=== PATIENT | female | born 1990 | race Caucasian/White ===

== ENCOUNTER 2017-01-23 20:20 | Emergency (ER) | payer MEDICARE, MEDICAID ==
[2017-01-23 20:52] VITALS: BP 147/78
[2017-01-23] MEDS ORDERED: Ibuprofen 800 MG Tab PO ONE (21:22)
--- NOTE | 2017-01-23 21:56 | EDM.PDOC ---
ED HPI ENT - General Chief Complaint: ENT Problem Stated Complaint: ILLNESS Time Seen by Provider: 01/23/17 21:20 Source: Reports: Patient History Limitations: Reports: No limitations (hoarse voice noted.) - History of Present Illness INITIAL COMMENTS - FREE TEXT/NARRATIVE: Pt reports 2 day hx of significant sore throat and now loss of voice. Has been using dayquil, nyquil and muccinex with some symptom relief. Has not taken anything recently for fever. Cough is productive and notes blood tinged sputum of 1 episode. 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) - Related Data Allergies/ADRs: Allergies Allergy/AdvReac Type Severity Reaction Status Date / Time No Known Allergies Allergy Verified 01/23/17 21:16 Home Meds: Home Meds Acyclovir [Acyclovir] 200 mg PO DAILY PRN 10/19/16 [History] Past Medical History - Past Health History Medical/Surgical History: Denies Medical/Surgical History Other HEENT History: excessive wax Genitourinary History: Reports: Other (see below) Other Genitourinary History: herpes - Infectious Disease History Infectious Disease History: Reports: Chicken pox, Herpes Social & Family History - Tobacco Use Smoking Status *Q: Current Status Unknown Second Hand Smoke Exposure: No - Caffeine Use Caffeine Use: Reports: Soda - Alcohol Use Days Per Week of Alcohol Use: 0 - Recreational Drug Use Recreational Drug Use: No Drug Use in Last 12 Months: No ED ROS ENT - Review of Systems Review Of Systems: ROS reveals no pertinent complaints other than HPI. ED EXAM, ENT - Physical Exam Exam: See Below Exam Limited By: No limitations General Appearance: alert, no apparent distress Eye Exam: bilateral eye: normal inspection, PERRL Ears: normal external exam, normal canal, hearing grossly normal, normal TMs Nose: normal inspection, normal mucousa Mouth/Throat: Tonsillar erythema, Tonsillar exudates, Tonsillar swelling. No: Peritonsillar mass (voice hoarsness) Head: atraumatic, normocephalic Neck: supple, lymphadenopathy (R), lymphadenopathy (L) Respiratory/Chest: no respiratory distress, lungs clear, normal breath sounds. No: rales, rhonchi, wheezing Cardiovascular: regular rate, rhythm Neurological: alert, oriented, normal cognition, normal gait, no motor/sensory deficits Psychiatric: normal affect, normal mood Skin: Warm, Dry Course - Vital Signs Last Recorded V/S: Last Vital Signs Temp 36.9 C 01/23/17 21:17 Pulse 73 01/23/17 21:17 Resp 16 01/23/17 21:17 BP 147/78 H 01/23/17 21:17 Pulse Ox 95 01/23/17 21:17 - Orders/Labs/Meds Orders: Active Orders 24 hr Category Date Time Status CULTURE STREP A CONFIRMATION [RM] Stat Lab 01/23/17 21:16 Results STREP SCRN A RAPID W CULT CONF [RM] Stat Lab 01/23/17 21:16 Results Labs: Rapid strep test negative. Culture pending. Discussed with patient. Meds: Medications Discontinued Medications Generic Name Dose Route Start Last Admin Trade Name Billq PRN Reason Stop Dose Admin Ibuprofen 800 mg 01/23/17 21:22 01/23/17 21:30 Motrin PO 01/23/17 21:23 800 mg ONETIME ONE Administration Departure - Departure Time of Disposition: 21:56 Disposition: Home, Self-Care 01 Condition: fair Clinical Impression: Tonsillitis, Tonsillitis with exudate, Laryngitis, Viral URI Instructions: Tonsillitis, [id number], Laryngitis Referrals: Jonathan Mares PA-C [Primary Care Provider] - Forms: ED Department Discharge - Problem List & Annotations (1) Tonsillitis with exudate SNOMED Code(s): 67979897 Code(s): J03.90 - ACUTE TONSILLITIS, UNSPECIFIED Status: Acute Current Visit: Yes (2) Laryngitis SNOMED Code(s): 24195951 Code(s): J04.0 - ACUTE LARYNGITIS Status: Acute Current Visit: Yes - Problem List Review Problem List Initiated/Reviewed/Updated: Yes - My Orders Last 24 Hours: My Active Orders 01/23/17 21:16 CULTURE STREP A CONFIRMATION [RM] Stat STREP SCRN A RAPID W CULT CONF [RM] Stat - Assessment/Plan Last 24 Hours: My Active Orders 01/23/17 21:16 CULTURE STREP A CONFIRMATION [RM] Stat STREP SCRN A RAPID W CULT CONF [RM] Stat
== END 2017-01-23 22:05 | disposition home or self-care (01) ==
LOC: JP.ED 20:20
DX: J03.90 Acute tonsillitis, unspecified (principal); J04.0 Acute laryngitis; J06.9 Acute upper respiratory infection, unspecified
CPT/HCPCS: 87081; 87430; 99283; A9270

== ENCOUNTER 2017-02-04 11:45 | Emergency (ER) | payer MEDICAID, MEDICARE, OTHER ==
[2017-02-04 12:24] VITALS: BP 127/67
--- NOTE | 2017-02-04 12:41 | EDM.PDOC ---
ED HPI GENERAL MEDICAL PROBLEM - General Chief Complaint: Upper Extremity Injury/Pain Stated Complaint: WORK COMP: UPPER LT ARM INJURY Time Seen by Provider: 02/04/17 12:33 Source of Information: Reports: Patient History Limitations: Reports: No Limitations - History of Present Illness INITIAL COMMENTS - FREE TEXT/NARRATIVE: This patient is a slipped in the freezer at the [employer]. She bumped her left upper arm against a shelf. She's here she just wants to get it checked out. She said it hurts when she extends her arm to the side. There were no other injuries - Related Data Allergies Allergy/AdvReac Type Severity Reaction Status Date / Time No Known Allergies Allergy Verified 02/04/17 12:15 Home Meds: Home Meds Acyclovir [Acyclovir] 200 mg PO DAILY PRN 10/19/16 [History] Past Medical History - Past Health History Medical/Surgical History: Denies Medical/Surgical History Other HEENT History: excessive wax Genitourinary History: Reports: Other (See Below) Other Genitourinary History: herpes - Infectious Disease History Infectious Disease History: Reports: Chicken Pox, Herpes Social & Family History - Tobacco Use Smoking Status *Q: Never Smoker Second Hand Smoke Exposure: No - Caffeine Use Caffeine Use: Reports: Soda - Alcohol Use Days Per Week of Alcohol Use: 0 - Recreational Drug Use Recreational Drug Use: No Drug Use in Last 12 Months: No Review of Systems - Review of Systems Review Of Systems: ROS reveals no pertinent complaints other than HPI. Trauma Exam - Physical Exam Exam: See Below Exam Limited By: No Limitations General Appearance: Reports: Alert, No Apparent Distress, Obese Head: Reports: Atraumatic Eyes: Bilateral Eye: Normal Inspection Neck: Reports: Full Range of Motion Extremities: Other (There is minimal tenderness to the upper arm to the lower margin of the left deltoid. She has full range of motion of the arm and shoulder. There's no bruising or swelling.) Course - Vital Signs Last Recorded V/S: Last Vital Signs Temp 36.7 C 02/04/17 12:21 Pulse 83 02/04/17 12:21 Resp 14 02/04/17 12:21 BP 127/67 02/04/17 12:21 Pulse Ox 98 02/04/17 12:21 Departure - Departure Time of Disposition: 12:40 Disposition: Home, Self-Care 01 Condition: good Clinical Impression: Contusion of right arm - Discharge Information Forms: ED Department Discharge Additional Instructions: It may help to apply some ice to the area but that is optional. For pain just use some Tylenol. You should be back to normal in a day or 2. You may return to work
== END 2017-02-04 12:56 | disposition home or self-care (01) ==
LOC: JP.ED 11:45
DX: S40.021A Contusion of right upper arm, initial encounter (principal); Z79.899 Other long term (current) drug therapy; W22.8XXA Striking against or struck by other objects, initial encounter
CPT/HCPCS: 99282; 99283

== ENCOUNTER 2017-05-27 13:51 | Emergency (ER) | payer MEDICARE, MEDICAID ==
[2017-05-27 15:48] VITALS: BP 161/87
--- NOTE | 2017-05-27 16:40 | EDM.PDOC ---
ED HPI GENERAL MEDICAL PROBLEM - General Chief Complaint: Respiratory Problem Stated Complaint: COUGH Time Seen by Provider: 05/27/17 16:39 Source of Information: Reports: Patient History Limitations: Reports: No Limitations - History of Present Illness INITIAL COMMENTS - FREE TEXT/NARRATIVE: Entire family has been passing around the same illness. C/o cough x 1 week. Seen by PCP and dx w/ common cold Rx OTC. Now c/o severe paroxysms of coughing ending in post-tussive emisis and inability to catch breath. Denies ST or fever. Onset: Gradual Duration: Day(s): (7), Intermittent, Recurring Location: Reports: Face (noted purulent R nasal discharge x 1 day) Improves with: Reports: None Worsens with: Reports: Breathing Associated Symptoms: Reports: Cough, Headaches, Malaise. Denies: Fever/Chills, Nausea/Vomiting - Related Data Allergies Allergy/AdvReac Type Severity Reaction Status Date / Time No Known Allergies Allergy Verified 02/04/17 12:15 Home Meds: Home Meds Acyclovir [Acyclovir] 200 mg PO DAILY PRN 10/19/16 [History] Past Medical History - Past Health History Medical/Surgical History: Denies Medical/Surgical History Other HEENT History: excessive wax Genitourinary History: Reports: Other (See Below) Other Genitourinary History: herpes - Infectious Disease History Infectious Disease History: Reports: Chicken Pox, Herpes Social & Family History - Tobacco Use Smoking Status *Q: Never Smoker Second Hand Smoke Exposure: No - Caffeine Use Caffeine Use: Reports: Soda - Alcohol Use Days Per Week of Alcohol Use: 0 - Recreational Drug Use Recreational Drug Use: No Drug Use in Last 12 Months: No ED ROS GENERAL - Review of Systems Review Of Systems: See Below Constitutional: Reports: Fatigue. Denies: Night Sweats, Diaphoresis, Decreased Appetite HEENT: Reports: Rhinitis. Denies: Dental Pain, Ear Discharge, Ear Pain, Eye Discharge, Eye Pain, Nosebleed, Nose Pain, Sinus Problem, Throat Pain, Throat Swelling Respiratory: Reports: Cough, Sputum (scant). Denies: Shortness of Breath, Other Cardiovascular: Reports: No Symptoms GI/Abdominal: Reports: No Symptoms Skin: Reports: No Symptoms ED EXAM, GENERAL - Physical Exam Exam: See Below Free Text/Narrative:: Lungs CTA bilat, oropharynx showed post-nasal drip, TM retracted on L, nl on R. Slight TTP over frontal/ethmoid sinuses, but not maxilary. Neck supple w/o LAD Exam Limited By: No Limitations General Appearance: Alert, WD/WN, No Apparent Distress Ears: No: Normal TMs Ear Exam: Right Ear: TM normal Nose: Normal Inspection, Normal Mucosa, No Blood Throat/Mouth: Normal Inspection, Normal Teeth, Normal Gums, Normal Oropharynx Head: Atraumatic, Normocephalic, Sinus Tenderness. No: Facial Swelling, Facial Tenderness Neck: Normal Inspection, Supple, Non-Tender, Full Range of Motion. No: Lymphadenopathy (R), Lymphadenopathy (L) Respiratory/Chest: No Respiratory Distress, Lungs Clear, Normal Breath Sounds, No Accessory Muscle Use, Chest Non-Tender. No: Respiratory Distress, Decreased Breath Sounds Cardiovascular: Regular Rate, Rhythm GI/Abdominal: Soft, Non-Tender Skin Exam: Warm, Dry, Intact, Normal Color, No Rash Lymphatic: No Adenopathy Course - Vital Signs Last Recorded V/S: Last Vital Signs Temp 37.1 C 05/27/17 15:47 Pulse 87 05/27/17 15:47 Resp 14 05/27/17 15:47 BP 161/87 H 05/27/17 15:47 Pulse Ox 98 05/27/17 15:47 - Orders/Labs/Meds Orders: Active Orders 24 hr Category Date Time Status RT Post Treatment Assessment [RC] Click to Edit Care 05/27/17 17:02 Active PERTUSSIS/PARAPERTUSSIS (PCR) [REF] Stat Lab 05/27/17 17:21 Received Meds: Medications Discontinued Medications Generic Name Dose Route Start Last Admin Trade Name Dick PRN Reason Stop Dose Admin Albuterol 1 gm 05/27/17 17:02 Ventolin Hfa INH 05/27/17 17:03 ONETIME ONE Departure - Departure Time of Disposition: 17:24 Disposition: Home, Self-Care 01 Clinical Impression: Acute bronchitis, viral Sinusitis nasal Qualifiers: Sinusitis location: frontal Chronicity: acute Recurrence: non-recurrent Qualified Code(s): J01.10 - Acute frontal sinusitis, unspecified - Discharge Information Referrals: Jonathan Mares PA-C [Primary Care Provider] - Forms: ED Department Discharge Additional Instructions: OTC nasal steroid spray. Afrin qd. Albuterol MDI for presumed bronchial viral ifxn. No e/o pneumonia on exam, CXR not indicated. Due to contagious nature and post tussive emisis/paroxysms sent pertussis cx - My Orders Last 24 Hours: My Active Orders 05/27/17 17:02 RT Post Treatment Assessment [RC] Click to Edit 05/27/17 17:21 PERTUSSIS/PARAPERTUSSIS (PCR) [REF] Stat - Assessment/Plan Last 24 Hours: My Active Orders 05/27/17 17:02 RT Post Treatment Assessment [RC] Click to Edit 05/27/17 17:21 PERTUSSIS/PARAPERTUSSIS (PCR) [REF] Stat
[2017-05-27] MEDS ORDERED: Albuterol 8 GM Inhaler INH ONE (17:02)
== END 2017-05-27 17:54 | disposition home or self-care (01) ==
LOC: JP.ED 13:51
DX: J01.10 Acute frontal sinusitis, unspecified (principal); J20.8 Acute bronchitis due to other specified organisms; Z79.899 Other long term (current) drug therapy
CPT/HCPCS: 87798; 99284; 99284-25

== ENCOUNTER 2017-06-07 20:23 | Emergency (ER) | payer MEDICARE, MEDICAID ==
[2017-06-07] MEDS ORDERED: Lactated Ringers 1,000 ML IV ONE (20:51)
[2017-06-07] MEDS ORDERED: Metoclopramide 10 MG/2 ML SDV IVPUSH ONE (20:51)
[2017-06-07] MEDS ORDERED: Acetaminophen 500 MG Tab PO ONE (20:52)
--- NOTE | 2017-06-07 20:57 | EDM.PDOC ---
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 Had low grade fevers on and off initially that went away. Today fever is high associated with cough, mild diarrhea, and vomiting. Unable to keep anything down. Has not had clinic follow up since dx. No dysuria, rash, or flank pain. Some abdominal wall tenderness. Onset: Today (Of high fever.) Onset Date: 06/07/17 Duration: Hour(s): Location: Reports: Generalized Severity: Moderate Improves with: Reports: None Worsens with: Reports: Other (? time) Context: Reports: Other (dx 05/27/17 with whooping cough) Associated Symptoms: Reports: Cough, Fever/Chills, Nausea/Vomiting, Other (mild diarrhea). 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) Generalized Pain Score (Numeric/FACES): 10 - Related Data Allergies Allergy/AdvReac Type Severity Reaction Status Date / Time No Known Allergies Allergy Verified 06/07/17 20:47 Home Meds: Home Meds Acyclovir [Acyclovir] 200 mg PO DAILY PRN 10/19/16 [History] Past Medical History - Past Health History Medical/Surgical History: Denies Medical/Surgical History Other HEENT History: excessive wax Genitourinary History: Reports: Other (See Below) Other Genitourinary History: herpes - Infectious Disease History Infectious Disease History: Reports: Chicken Pox, Herpes Social & Family History - Tobacco Use Smoking Status *Q: Never Smoker Second Hand Smoke Exposure: No - Caffeine Use Caffeine Use: Reports: Soda - Alcohol Use Days Per Week of Alcohol Use: 0 - Recreational Drug Use Recreational Drug Use: No Drug Use in Last 12 Months: No ED ROS GENERAL - Review of Systems Review Of Systems: See Below Constitutional: Reports: Fever, Chills, Weakness HEENT: Reports: Throat Pain Respiratory: Reports: Shortness of Breath, Cough Cardiovascular: Reports: Lightheadedness GI/Abdominal: Reports: Abdominal Pain (wall pain), Diarrhea, Decreased Appetite , Nausea, Vomiting. Denies: Black Stool, Bloody Stool, Constipation : Reports: No Symptoms Musculoskeletal: Reports: No Symptoms Skin: Reports: No Symptoms Neurological: Reports: No Symptoms Psychiatric: Reports: No Symptoms ED EXAM, GENERAL - Physical Exam Exam: See Below Exam Limited By: No Limitations General Appearance: Alert, WD/WN, No Apparent Distress, Obese Eye Exam: Bilateral Eye: Normal Inspection Ears: Normal External Exam, Normal Canal, Hearing Grossly Normal, Normal TMs Ear Exam: Bilateral Ear: Auricle Normal, Canal Normal, TM normal Nose: Normal Inspection, Normal Mucosa, No Blood Throat/Mouth: Normal Inspection, Normal Lips, Normal Teeth, Normal Oropharynx, Normal Voice, No Airway Compromise Head: Atraumatic, Normocephalic Neck: Normal Inspection, Supple Respiratory/Chest: No Respiratory Distress, Lungs Clear, Normal Breath Sounds, No Accessory Muscle Use, Other (frequent harsh, non-productive cough.) Cardiovascular: No Edema, Tachycardia GI/Abdominal: Normal Bowel Sounds, Soft, Tender (mild, wall tenderness) Back Exam: Normal Inspection. No: CVA Tenderness (R), CVA Tenderness (L) Extremities: Normal Inspection, Normal Range of Motion, Non-Tender, No Pedal Edema Neurological: Alert, Oriented, CN II-XII Intact, Normal Cognition, No Motor/ Sensory Deficits Psychiatric: Normal Affect, Normal Mood Skin Exam: Warm, Dry, Intact, Normal Color, No Rash Lymphatic: No Adenopathy Course - Vital Signs Last Recorded V/S: Last Vital Signs Temp 38.1 C 06/07/17 22:48 Pulse 115 H 06/07/17 22:48 Resp 15 06/07/17 22:48 BP 128/81 06/07/17 22:48 Pulse Ox 97 06/07/17 22:48 - Orders/Labs/Meds Orders: Active Orders 24 hr Category Date Time Status Chest 2V [CR] Stat Exams 06/07/17 22:23 Taken CULTURE BLOOD [BC] Stat Lab 06/07/17 21:09 Received Labs: Laboratory Tests 06/07/17 06/07/17 06/07/17 Range/Units 21:09 21:09 21:09 WBC 13.0 H (4.5-11.0) K/uL RBC 5.44 (3.30-5.50) M/uL Hgb 14.3 (12.0-15.0) g/dL Hct 44.9 (36.0-48.0) % MCV 83 (80-98) fL MCH 26 L (27-31) pg MCHC 32 (32-36) % Plt Count 280 (150-400) K/uL Sodium 142 (140-148) mmol/L Potassium 3.8 (3.6-5.2) mmol/L Chloride 104 (100-108) mmol/L Carbon Dioxide 31 (21-32) mmol/L Anion Gap 7.2 (5.0-14.0) mmol/L BUN 8 (7-18) mg/dL Creatinine 0.7 (0.6-1.0) mg/dL Est Cr Clr Drug Dosing 109.59 mL/min Estimated GFR (MDRD) > 60 (>60) Glucose 103 (74-106) mg/dL Lactic Acid 1.0 (0.4-2.0) mmol/L Calcium 9.1 (8.5-10.1) mg/dL C-Reactive Protein (0.0-0.3) mg/dL Urine Color Urine Appearance Urine pH (4.5-8.0) Ur Specific [place] (1.008-1.030) Urine Protein (NEGATIVE) mg/dL Urine Glucose (UA) (NEGATIVE) mg/dL Urine Ketones (NEGATIVE) mg/dL Urine Occult Blood (NEGATIVE) Urine Nitrite (NEGATIVE) Urine Bilirubin (NEGATIVE) Urine Urobilinogen (NORMAL) mg/dL Ur Leukocyte Esterase (NEGATIVE) Urine RBC (0-5) Urine WBC (0-5) Ur Epithelial Cells Amorphous Sediment Urine Bacteria Urine Mucus 06/07/17 06/07/17 Range/Units 21:31 22:35 WBC (4.5-11.0) K/uL RBC (3.30-5.50) M/uL Hgb (12.0-15.0) g/dL Hct (36.0-48.0) % MCV (80-98) fL MCH (27-31) pg MCHC (32-36) % Plt Count (150-400) K/uL Sodium (140-148) mmol/L Potassium (3.6-5.2) mmol/L Chloride (100-108) mmol/L Carbon Dioxide (21-32) mmol/L Anion Gap (5.0-14.0) mmol/L BUN (7-18) mg/dL Creatinine (0.6-1.0) mg/dL Est Cr Clr Drug Dosing mL/min Estimated GFR (MDRD) (>60) Glucose (74-106) mg/dL Lactic Acid (0.4-2.0) mmol/L Calcium (8.5-10.1) mg/dL C-Reactive Protein 1.34 H (0.0-0.3) mg/dL Urine Color Yellow Urine Appearance Clear Urine pH 6.5 (4.5-8.0) Ur Specific [place] 1.015 (1.008-1.030) Urine Protein Negative (NEGATIVE) mg/dL Urine Glucose (UA) Normal (NEGATIVE) mg/dL Urine Ketones Negative (NEGATIVE) mg/dL Urine Occult Blood Negative (NEGATIVE) Urine Nitrite Negative (NEGATIVE) Urine Bilirubin Negative (NEGATIVE) Urine Urobilinogen Normal (NORMAL) mg/dL Ur Leukocyte Esterase Negative (NEGATIVE) Urine RBC 0-5 (0-5) Urine WBC 0-5 (0-5) Ur Epithelial Cells Few Amorphous Sediment Not seen Urine Bacteria Few Urine Mucus Not seen Meds: Medications Discontinued Medications Generic Name Dose Route Start Last Admin Trade Name Freq PRN Reason Stop Dose Admin Acetaminophen 1,000 mg 06/07/17 20:52 06/07/17 22:14 Tylenol Extra Strength PO 06/07/17 20:53 1,000 mg ONETIME ONE Administration Lactated Ringer's 1,000 mls @ 1,000 mls/hr 06/07/17 20:51 06/07/17 21:25 Ringers, Lactated IV 06/07/17 21:50 1,000 mls/hr BOLUS ONE Administration Metoclopramide HCl 10 mg 06/07/17 20:51 06/07/17 21:25 Reglan IVPUSH 06/07/17 20:52 10 mg ONETIME ONE Administration Ondansetron HCl 4 mg 06/07/17 21:43 06/07/17 22:45 Zofran IVPUSH 06/07/17 21:44 4 mg ONETIME ONE Administration - Radiology Interpretation Free Text/Narrative:: CXR-negative Departure - Departure Time of Disposition: 23:10 Disposition: Home, Self-Care 01 Condition: Fair Clinical Impression: Cough Fever Qualifiers: Fever type: unspecified Qualified Code(s): R50.9 - Fever, unspecified Nausea & vomiting Qualifiers: Vomiting type: unspecified Vomiting Intractability: non-intractable Qualified Code(s): R11.2 - Nausea with vomiting, unspecified - Discharge Information Referrals: Jonathan Mares PA-C [Primary Care Provider] - Forms: ED Department Discharge - My Orders Last 24 Hours: My Active Orders 06/07/17 21:09 CULTURE BLOOD [BC] Stat 06/07/17 22:23 Chest 2V [CR] Stat - Assessment/Plan Last 24 Hours: My Active Orders 06/07/17 21:09 CULTURE BLOOD [BC] Stat 06/07/17 22:23 Chest 2V [CR] Stat
[2017-06-07] MEDS ORDERED: Ondansetron 4 MG/2 ML SDV IVPUSH ONE (21:43)
[2017-06-07 22:51] VITALS: BP 128/81
[2017-06-07] MEDS ORDERED: Levofloxacin 500 MG Tab PO STA (23:14)
--- NOTE | 2017-06-08 09:13 | CR ---
Chest 2V HISTORY: cough/fever COMPARISON: None FINDINGS: Lungs appear clear and normally aerated. Cardiomediastinal silhouette is within normal limits. No vas cular redistribution or pleural fluid can be seen. Bony structures and soft tissues are unremarkable. IMPRESSION: No acute chest abnormality identified.
== END 2017-06-07 23:35 | disposition home or self-care (01) ==
LOC: JP.ED 20:23
DX: R50.9 Fever, unspecified (principal); R05 Cough; R11.2 Nausea with vomiting, unspecified
CPT/HCPCS: 36415; 71020; 80048; 81001; 83605; 85027; 86140; 87040; 96361; 96374; 96375; 99284; A9270; J2405; J2765; J7120; 99283

== ENCOUNTER 2018-12-31 19:57 | Emergency (ER) | payer MEDICARE, MEDICAID ==
[2018-12-31 20:29] VITALS: BP 128/80
--- NOTE | 2018-12-31 22:16 | EDM.PDOC ---
ED HPI GENERAL MEDICAL PROBLEM - General Chief Complaint: ENT Problem Stated Complaint: COUGHING, SORE THROAT Time Seen by Provider: 12/31/18 20:45 Source of Information: Reports: Patient History Limitations: Reports: No Limitations - History of Present Illness INITIAL COMMENTS - FREE TEXT/NARRATIVE: pt arrived with a sore throat and a cough. She has been ill for about 2 days. She has not run a high temp. Onset: Other (pt has been ill for about 2 days. ) Duration: Hour(s): Associated Symptoms: Reports: Cough, Other (pt has a sore throat. ) Throat Pain Score (Numeric/FACES): 5 - Related Data Allergies Allergy/AdvReac Type Severity Reaction Status Date / Time No Known Allergies Allergy Verified 06/07/17 20:47 Home Meds: Home Meds valACYclovir [Valtrex] 500 mg PO DAILY 12/31/18 [History] Past Medical History - Past Health History Medical/Surgical History: Denies Medical/Surgical History Other HEENT History: excessive wax Respiratory History: Reports: SOB Other Respiratory History: CURRENT HX OF WHOOPING COUGH Genitourinary History: Reports: Other (See Below) Other Genitourinary History: herpes Psychiatric History: Reports: Depression - Infectious Disease History Infectious Disease History: Reports: Chicken Pox, Herpes Social & Family History - Tobacco Use Smoking Status *Q: Never Smoker Second Hand Smoke Exposure: No - Caffeine Use Caffeine Use: Reports: Soda - Recreational Drug Use Recreational Drug Use: No ED ROS ENT - Review of Systems Review Of Systems: See Below Constitutional: Reports: Chills, Malaise, Other ( sore throat) Respiratory: Reports: No Symptoms Cardiovascular: Reports: No Symptoms Endocrine: Reports: No Symptoms GI/Abdominal: Reports: No Symptoms : Reports: No Symptoms Musculoskeletal: Reports: Other ( body aches. ) ED EXAM, ENT - Physical Exam Exam: See Below Text/Narrative:: pt arrived with a history of a sore throat and a cough. Exam Limited By: No Limitations General Appearance: Alert, Mild Distress Ears: Normal TMs Nose: Normal Inspection Mouth/Throat: Other ( throat looks very red. She is having discomfort when she swallows. ) Head: Atraumatic Neck: Lymphadenopathy (R), Lymphadenopathy (L) Respiratory/Chest: No Respiratory Distress Cardiovascular: Regular Rate, Rhythm GI/Abdominal: Soft, Non-Tender Course - Vital Signs Last Recorded V/S: Last Vital Signs Temp 36.8 C 12/31/18 20:21 Pulse 96 12/31/18 20:21 Resp 20 12/31/18 20:21 BP 128/80 12/31/18 20:21 Pulse Ox - Re-Assessments/Exams Free Text/Narrative Re-Assessment/Exam: 12/31/18 22:26 pt had a positive strept. She also states that her cough keeps her awake at nite. Departure - Departure Time of Disposition: 22:15 Disposition: Home, Self-Care 01 Condition: Fair Clinical Impression: Streptococcal pharyngitis - Discharge Information Instructions: Strep Throat, [id number] Referrals: Bianca Ding MD [Primary Care Provider] - Forms: ED Department Discharge Care Plan Goals: tylenol and motrin for pain, amoxicillin 500mg tid for 10 days, robitussin ac 1- 2 tsp q6h, no work for 2 days.
== END 2018-12-31 22:31 | disposition home or self-care (01) ==
LOC: JP.ED 19:57
DX: J02.0 Streptococcal pharyngitis (principal); Z79.899 Other long term (current) drug therapy
CPT/HCPCS: 87430; 99283

== ENCOUNTER 2019-01-09 21:02 | Emergency (ER) | payer MEDICARE, MEDICAID ==
--- NOTE | 2019-01-09 22:16 | EDM.PDOC ---
ED HPI GENERAL MEDICAL PROBLEM - General Chief Complaint: ENT Problem Stated Complaint: COUGH Time Seen by Provider: 01/09/19 21:32 Source of Information: Reports: Patient History Limitations: Reports: No Limitations - History of Present Illness INITIAL COMMENTS - FREE TEXT/NARRATIVE: Chief complaint: Sore throat cough runny nose. This is a 28-year-old female presents emergency room with her mother, reports was treated for strep throat on DecemberDecember 30 with amoxicillin twice a day 10 days, took her last dose today. She reports still with the sore throat and nasal congestion. She has a headache in her forehead and coughing up thick green mucus. Has been sick greater than 10 days. Denies any nausea, vomiting, diarrhea, rash, . Last medication amoxicillin twice a day 10 days no chronic medications noted no chronic health conditions Onset: Gradual Onset Date: 12/27/18 Duration: Constant Location: Reports: Face (Sore throat, sinus congestion), Chest (Productive cough with green sputum), Abdomen (Fingers are sore to the back is), Generalized Quality: Reports: Pressure (forehead), Sharp (sore throat), Throbbing (nasal sinus) Severity: Moderate Improves with: Reports: None Worsens with: Reports: None Context: Reports: Other (had a 10 day course of antibiotics) Associated Symptoms: Reports: Cough, Other (sore throat, productive cough, sinus congestion and discharge) Treatments EXPORT COORDINATOR: Reports: Acetaminophen, Other (see below) Other Treatments EXPORT COORDINATOR: antibiotic throat Pain Score (Numeric/FACES): 8 - Related Data Allergies Allergy/AdvReac Type Severity Reaction Status Date / Time No Known Allergies Allergy Verified 01/09/19 21:49 Home Meds: Home Meds NK [No Known Home Meds] 01/09/19 [History] Past Medical History - Past Health History Medical/Surgical History: Denies Medical/Surgical History Other HEENT History: excessive wax Respiratory History: Reports: SOB Other Respiratory History: CURRENT HX OF WHOOPING COUGH Genitourinary History: Reports: Other (See Below) Other Genitourinary History: herpes Psychiatric History: Reports: Depression - Infectious Disease History Infectious Disease History: Reports: Chicken Pox, Herpes Social & Family History - Caffeine Use Caffeine Use: Reports: Soda - Living Situation & Occupation Living situation: Reports: Occupation: Employed (, 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 Raising her two brothers ages 17 yr and 14 years because her Mom lost custody. No children of her own.) ED ROS ENT - Review of Systems Review Of Systems: See Below Constitutional: Reports: Fever HEENT: Reports: Nose Pain, Sinus Problem, Throat Pain Respiratory: Reports: Pleuritic Chest Pain, Cough, Sputum (green thick) Endocrine: Reports: No Symptoms GI/Abdominal: Reports: No Symptoms Musculoskeletal: Reports: No Symptoms Skin: Reports: No Symptoms Neurological: Reports: No Symptoms Psychiatric: Reports: No Symptoms Hematologic/Lymphatic: Reports: No Symptoms Immunologic: Reports: No Symptoms ED EXAM, ENT - Physical Exam Exam: See Below Exam Limited By: No Limitations General Appearance: Alert, WD/WN, No Apparent Distress Eye Exam: Bilateral Eye: Normal Inspection Ears: Normal External Exam, Normal Canal, Hearing Grossly Normal, Normal TMs Nose: Nasal Discharge, Injected Turbinates, Other (frontal and maxillary pain with palpation) Mouth/Throat: Normal Gums, Normal Lips, Normal Teeth, Throat Pain, Tonsillar Erythema (mild, no exudate is present) Head: Atraumatic, Normocephalic Neck: Normal Inspection, Supple, Non-Tender, Full Range of Motion Respiratory/Chest: No Respiratory Distress, Lungs Clear, Normal Breath Sounds, No Accessory Muscle Use, Other (cough present, did not produce any sputum at this visit, winces during coughing event.) Cardiovascular: Regular Rate, Rhythm, No Murmur GI/Abdominal: Non-Tender Extremities: Normal Range of Motion, Normal Capillary Refill Neurological: No Motor/Sensory Deficits Psychiatric: Normal Affect, Normal Mood Skin: Warm, Dry, Intact, Normal Color, No Rash Lymphatic: No Adenopathy Course - Vital Signs Last Recorded V/S: Last Vital Signs Temp 36.3 C 01/09/19 21:55 Pulse 72 01/09/19 21:55 Resp 14 01/09/19 21:55 BP 132/78 01/09/19 21:55 Pulse Ox 96 01/09/19 21:55 Departure - Departure Time of Disposition: 22:11 Disposition: Home, Self-Care 01 Condition: Good Clinical Impression: Acute sinusitis with symptoms > 10 days, Bronchitis - Discharge Information *PRESCRIPTION DRUG MONITORING PROGRAM REVIEWED*: No *COPY OF PRESCRIPTION DRUG MONITORING REPORT IN PATIENT BRENNAN: No Instructions: Sinusitis, Adult, [id number], Cough, Adult Referrals: Bianca Ding MD [Primary Care Provider] - Forms: ED Department Discharge, ED Return to Work/School Form Care Plan Goals: Acute Sinusitis with Bronchitis -Zithromax 500mg today, then 250mg by mouth daily x 4 days -Robitussin AC 10ml by mouth every 4 hours as needed for painful cough -Prednisone 10mg take two tablets daily for 5 days -work slip given -rest, push fluids, take medications as directed -return to ER if not improved or symptoms worsen. - Problem List & Annotations (1) Acute sinusitis with symptoms > 10 days SNOMED Code(s): 05112071 Code(s): J01.90 - ACUTE SINUSITIS, UNSPECIFIED Status: Acute Priority: High (2) Bronchitis SNOMED Code(s): 57442807 Code(s): J40 - BRONCHITIS, NOT SPECIFIED ACUTE OR CHRONIC Status: Acute Priority: High - Problem List Review Problem List Initiated/Reviewed/Updated: Yes - Assessment/Plan Plan: Acute Sinusitis with Bronchitis -Zithromax 500mg today, then 250mg by mouth daily x 4 days -Robitussin AC 10ml by mouth every 4 hours as needed for painful cough -Prednisone 10mg take two tablets daily for 5 days -work slip given -rest, push fluids, take medications as directed -return to ER if not improved or symptoms worsen.
[2019-01-09 22:39] VITALS: BP 132/78
== END 2019-01-09 22:39 | disposition home or self-care (01) ==
LOC: JP.ED 21:02
DX: J40 Bronchitis, not specified as acute or chronic (principal); J01.90 Acute sinusitis, unspecified
CPT/HCPCS: 99283

== ENCOUNTER 2019-05-24 12:08 | Emergency (ER) | payer MEDICARE, MEDICAID ==
[2019-05-24 12:30] VITALS: BP 139/69
--- NOTE | 2019-05-24 12:48 | EDM.PDOC ---
ED HPI GENERAL MEDICAL PROBLEM - General Chief Complaint: ENT Problem Stated Complaint: SORE THROAT Time Seen by Provider: 05/24/19 12:35 Source of Information: Reports: Patient, Old Records, RN History Limitations: Reports: No Limitations - History of Present Illness INITIAL COMMENTS - FREE TEXT/NARRATIVE: 29 yo female presents with a sore throat and cough. No fever. Taking OTC agents without relief. Has not been to the clinic for this. No SOB or wheezing. Onset: Gradual Onset Date: 05/21/19 Duration: Day(s):, Constant Location: Reports: Neck (throat), Chest Quality: Reports: Dull Severity: Mild Improves with: Reports: Medication Worsens with: Reports: Other (coughing, swallowing) Context: Reports: Sick Contact Associated Symptoms: Reports: Cough. Denies: Fever/Chills, Rash, Shortness of Breath Treatments LAY HEALTH ADVOCATE: Reports: Other (see below) (cough drops) Throat Pain Score (Numeric/FACES): 5 - Related Data Allergies Allergy/AdvReac Type Severity Reaction Status Date / Time No Known Allergies Allergy Verified 05/24/19 12:37 Home Meds: Home Meds valACYclovir [Valtrex] 1 tab PO DAILY 05/24/19 [History] Past Medical History - Past Health History Medical/Surgical History: Denies Medical/Surgical History HEENT History: Reports: Other (See Below) Other HEENT History: excessive wax Respiratory History: Reports: SOB Other Respiratory History: CURRENT HX OF WHOOPING COUGH Genitourinary History: Reports: Other (See Below) Other Genitourinary History: herpes Psychiatric History: Reports: Depression - Infectious Disease History Infectious Disease History: Reports: Chicken Pox, Herpes Social & Family History - Family History Family Medical History: Unobtainable - Tobacco Use Smoking Status *Q: Never Smoker - Caffeine Use Caffeine Use: Reports: Soda - Recreational Drug Use Recreational Drug Use: No - Living Situation & Occupation Living situation: Reports: Occupation: Employed (, 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 Raising her two brothers ages 17 yr and 14 years because her Mom lost custody. No children of her own.) ED ROS ENT - Review of Systems Review Of Systems: See Below Constitutional: Reports: No Symptoms HEENT: Reports: Throat Pain. Denies: Ear Discharge, Ear Pain, Nose Pain, Rhinitis, Sinus Problem, Throat Swelling Respiratory: Reports: Cough. Denies: Shortness of Breath, Wheezing, Pleuritic Chest Pain, Sputum, Hemoptysis Skin: Reports: No Symptoms Neurological: Reports: No Symptoms ED EXAM, ENT - Physical Exam Exam: See Below Exam Limited By: No Limitations General Appearance: Alert, WD/WN, No Apparent Distress Eye Exam: Bilateral Eye: Normal Inspection Nose: Normal Inspection, No Blood, Clear Rhinorrhea Mouth/Throat: Normal Inspection, Normal Lips, Normal Oropharynx Head: Atraumatic, Normocephalic Neck: Normal Inspection Respiratory/Chest: No Respiratory Distress, Lungs Clear, Normal Breath Sounds, No Accessory Muscle Use Cardiovascular: Regular Rate, Rhythm, No Edema Extremities: Normal Inspection Neurological: Alert, Oriented, CN II-XII Intact, Normal Cognition Psychiatric: Normal Affect, Normal Mood Skin: Warm, Dry, Intact, Normal Color, No Rash Course - Vital Signs Last Recorded V/S: Last Vital Signs Temp 36.3 C 05/24/19 12:36 Pulse 70 05/24/19 12:36 Resp 14 05/24/19 12:36 BP 139/69 05/24/19 12:36 Pulse Ox 91 L 05/24/19 12:36 Departure - Departure Time of Disposition: 12:47 Disposition: Home, Self-Care 01 Condition: Good Clinical Impression: Viral respiratory illness - Discharge Information *PRESCRIPTION DRUG MONITORING PROGRAM REVIEWED*: No *COPY OF PRESCRIPTION DRUG MONITORING REPORT IN PATIENT BRENNAN: No Instructions: Viral Respiratory Infection, [id number] Referrals: Bianca Ding MD [Primary Care Provider] - Additional Instructions: Continue present cares. Frequent hand washing to prevent spread. Recheck with you provider as needed.
== END 2019-05-24 12:52 | disposition home or self-care (01) ==
LOC: JP.ED 12:08
DX: B34.9 Viral infection, unspecified (principal); Z86.19 Personal history of other infectious and parasitic diseases; Z79.899 Other long term (current) drug therapy
CPT/HCPCS: 99283

== ENCOUNTER 2019-07-13 06:00 | Emergency (ER) | payer MEDICARE, MEDICAID ==
[2019-07-13 06:14] VITALS: BP 143/81; PULSE 75
--- NOTE | 2019-07-13 06:41 | EDM.PDOC ---
ED HPI GENERAL MEDICAL PROBLEM - General Chief Complaint: Eye Problems Stated Complaint: RIGHT EYE ITCHING WITH PAIN Time Seen by Provider: 07/13/19 06:30 Source of Information: Reports: Patient, Old Records, RN History Limitations: Reports: No Limitations - History of Present Illness INITIAL COMMENTS - FREE TEXT/NARRATIVE: 29 yo female here with an itchy R eye that is red with drainage. This is day #3 and it is worsening. There has been drainage from that eye. Stops on her way to work, works at [employer]. No rhinorrhea, cough or sore throat. Has not been seen for this problem so far. Onset: Gradual Onset Date: 07/11/19 Duration: Day(s):, Getting Worse Location: Reports: Face (R eye only) Quality: Reports: Other (mildly itchy) Severity: Mild Improves with: Reports: None Worsens with: Reports: None Context: Reports: Other (See HPI) Associated Symptoms: Reports: No Other Symptoms Treatments GATE PERSON: Reports: Other (see below) (none) Right Eye Pain Score (Numeric/FACES): 5 - Related Data Allergies Allergy/AdvReac Type Severity Reaction Status Date / Time No Known Allergies Allergy Verified 05/24/19 12:37 Home Meds: Home Meds valACYclovir [Valtrex] 1 tab PO DAILY 05/24/19 [History] Past Medical History - Past Health History Medical/Surgical History: Denies Medical/Surgical History HEENT History: Reports: Other (See Below) Other HEENT History: excessive wax Cardiovascular History: Reports: Hypertension Other Cardiovascular History: HTN sometimes (intermittent, not treating at this time) Respiratory History: Reports: SOB Other Respiratory History: CURRENT HX OF WHOOPING COUGH Genitourinary History: Reports: Other (See Below) Other Genitourinary History: herpes Psychiatric History: Reports: Depression - Infectious Disease History Infectious Disease History: Reports: Chicken Pox, Herpes Social & Family History - Family History Family Medical History: Unobtainable - Tobacco Use Smoking Status *Q: Never Smoker Second Hand Smoke Exposure: No - Caffeine Use Caffeine Use: Reports: Energy Drinks, Soda - Recreational Drug Use Recreational Drug Use: No - Living Situation & Occupation Living situation: Reports: Occupation: Employed (, 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 Raising her two brothers ages 17 yr and 14 years because her Mom lost custody. No children of her own.) ED ROS GENERAL - Review of Systems Review Of Systems: ROS reveals no pertinent complaints other than HPI. Constitutional: Reports: No Symptoms HEENT: Reports: Eye Discharge, Other (R eye redness). Denies: Contact Lenses, Eye Pain, Vision Change ED EXAM GENERAL W FULL EYE - Physical Exam Exam: See Below Exam Limited By: No Limitations General Appearance: Alert, WD/WN, No Apparent Distress, Obese Eye Exam: Right Eye: Conjunctival Injection, Left Eye: Normal Inspection, Bilateral Eye: PERRL, Other (no photophobia) Eyelids: Bilateral: Normal Appearance Conjunctiva & Sclera: Right: Discharge (not extensive), Injected, Left: Normal Appearance Cornea Exam: Bilateral: Normal Appearance Extraocular Movements: Bilateral: Intact Pupillary Size: Bilateral: 3 mm Ears: Normal External Exam, Normal Canal, Hearing Grossly Normal, Normal TMs Nose: Normal Inspection, No Blood Throat/Mouth: Normal Inspection, Normal Lips, Normal Oropharynx, Normal Voice, No Airway Compromise Head: Atraumatic, Normocephalic Neck: Normal Inspection Respiratory/Chest: No Respiratory Distress, No Accessory Muscle Use Extremities: Normal Inspection Neurological: Alert, Oriented, CN II-XII Intact, Normal Cognition, No Motor/ Sensory Deficits Psychiatric: Normal Affect, Normal Mood Skin Exam: Warm, Dry, Intact, Normal Color, No Rash Course - Vital Signs Last Recorded V/S: Last Vital Signs Temp 36.4 C 07/13/19 06:13 Pulse 75 07/13/19 06:13 Resp 14 07/13/19 06:13 BP 143/81 H 07/13/19 06:13 Pulse Ox Departure - Departure Time of Disposition: 06:45 Disposition: Home, Self-Care 01 Condition: Good Clinical Impression: Viral conjunctivitis of right eye - Discharge Information *PRESCRIPTION DRUG MONITORING PROGRAM REVIEWED*: No *COPY OF PRESCRIPTION DRUG MONITORING REPORT IN PATIENT BRENNAN: No Instructions: Viral Conjunctivitis, Adult Referrals: Bianca Ding MD [Primary Care Provider] - Additional Instructions: Frequent hand washing to prevent spread. Use diphenhydramine 25-50 mg every 4-6 hrs as needed for itching. Apply prescription medication to your eye as directed. Recheck with your provider if worse or not improving.
== END 2019-07-13 06:55 | disposition home or self-care (01) ==
LOC: JP.ED 06:00
DX: B30.9 Viral conjunctivitis, unspecified (principal); I10 Essential (primary) hypertension; B00.9 Herpesviral infection, unspecified; Z79.899 Other long term (current) drug therapy
CPT/HCPCS: 99283

== ENCOUNTER 2019-10-01 17:50 | Emergency (ER) | payer MEDICARE, MEDICAID ==
[2019-10-01 18:04] VITALS: PULSE 86
--- NOTE | 2019-10-01 18:25 | EDM.PDOC ---
ED HPI GENERAL MEDICAL PROBLEM - General Chief Complaint: Headache Stated Complaint: DIZZY - HEADACHE Time Seen by Provider: 10/01/19 18:25 Source of Information: Reports: Patient History Limitations: Reports: No Limitations - History of Present Illness INITIAL COMMENTS - FREE TEXT/NARRATIVE: 29 years old female patient presented with a chief complaint of headache, 4 out of 10, generalized dull aching pain. Intermittent has been going on for 2 or 3 weeks. Goes away with ibuprofen. Denies any associated nausea or vomiting. Denies any fever. Denies any focal weakness or numbness anywhere. Denies any visual changes. Denies any neck pain or stiffness. Denies any back pain. Denies any chest pain shortness breath. Denies abdominal pain diarrhea or constipation. Denies any urinary symptom. Sometimes she feels dizzy, and lightheaded but not now. Has not seen her primary doctor for that as she says she doesn't leg doctors. Decided to come tonight because her programming manager told her to do so Headache Pain Score (Numeric/FACES): 5 - Related Data Allergies Allergy/AdvReac Type Severity Reaction Status Date / Time No Known Allergies Allergy Verified 10/01/19 18:06 Home Meds: Home Meds valACYclovir [Valtrex] 1 tab PO DAILY 05/24/19 [History] Past Medical History - Past Health History Medical/Surgical History: Denies Medical/Surgical History HEENT History: Reports: Other (See Below) Other HEENT History: excessive wax Cardiovascular History: Reports: Hypertension Other Cardiovascular History: HTN sometimes (intermittent, not treating at this time) Respiratory History: Reports: SOB Other Respiratory History: CURRENT HX OF WHOOPING COUGH Genitourinary History: Reports: Other (See Below) Other Genitourinary History: herpes Psychiatric History: Reports: Depression - Infectious Disease History Infectious Disease History: Reports: Herpes Social & Family History - Family History Family Medical History: Unobtainable - Tobacco Use Smoking Status *Q: Never Smoker - Caffeine Use Caffeine Use: Reports: Soda - Recreational Drug Use Recreational Drug Use: No - Living Situation & Occupation Living situation: Reports: Occupation: Employed (, lives with who is a Principal Law Clerk, she works at [employer]. Raising her two brothers ages 17 yr and 14 years because her Mom lost custody. No children of her own.) ED ROS GENERAL - Review of Systems Review Of Systems: Comprehensive ROS is negative, except as noted in HPI. - Physical Exam Exam: See Below Exam Limited By: No Limitations General Appearance: Alert, WD/WN, No Apparent Distress Nose: Normal Inspection, Normal Mucosa, No Blood Head Exam: Atraumatic, Normocephalic Neck: Normal Inspection, Supple, Non-Tender, Full Range of Motion Respiratory/Chest: No Respiratory Distress, Lungs Clear, Normal Breath Sounds, No Accessory Muscle Use, Chest Non-Tender Cardiovascular: Normal Peripheral Pulses, Regular Rate, Rhythm, No Edema, No Gallop, No JVD, No Murmur, No Rub GI/Abdominal: Normal Bowel Sounds, Soft, Non-Tender, No Organomegaly, No Distention, No Abnormal Bruit, No Mass Neuro Exam (Abbreviated): Alert, Oriented, CN II-XII Intact, Normal Cognition, Normal Gait, Normal Reflexes, No Motor/Sensory Deficits Extremities: Normal Inspection, Normal Range of Motion, Non-Tender, No Pedal Edema, Normal Capillary Refill Psychiatric: Normal Affect, Normal Mood Skin Exam: Warm, Dry, Intact, Normal Color, No Rash, Other (Hirsutism) Course - Vital Signs Last Recorded V/S: Last Vital Signs Temp 36.4 C 10/01/19 18:05 Pulse 86 10/01/19 18:05 Resp 16 10/01/19 18:05 BP 152/103 H 10/01/19 18:05 Pulse Ox 95 10/01/19 18:05 - Orders/Labs/Meds Meds: Medications Discontinued Medications Generic Name Dose Route Start Last Admin Trade Name Billq PRN Reason Stop Dose Admin Ibuprofen 800 mg 10/01/19 18:40 Motrin PO 10/01/19 18:41 ONETIME ONE - Re-Assessments/Exams Free Text/Narrative Re-Assessment/Exam: 10/01/19 18:46 Patient was seen and examined shortly after arrival. The stable. Blood pressure noted to be elevated. Patient stated that she had a stage I hypertension and was told she does not need any medication at this point. Patient refusing any workup. Refusing blood testing, EKG, urine testing, test. Also refusing CT head. Only requesting ibuprofen and to be discharged. She said ibuprofen was taking her headache away. She said she is not and was told she have a condition that can get and she doesn't get her period. I did give her 800 of ibuprofen. Advised to follow-up tomorrow with her primary doctor, review her blood pressure and possibly starting blood pressure medication. Also discuss her current headache, possibly scan of her head or MRI and further testing. Also suspicion for pseudotumor cerebri. Broad differential was considered including but not limited to CVA, meningitis, migraine headache, cluster headache, tension headache, pseudotumor cerebri, and cyclitis, hypertensive emergency, MRI, etc. Advised to rest, hydration. Come back for any concern or any worsening symptom. Patient agrees with the plan. Stable for discharge.. 10/01/19 18:51 Departure - Departure Time of Disposition: 18:49 Disposition: Home, Self-Care 01 Condition: Good Clinical Impression: Head ache, Migraine, Tension-type headache, Elevated blood pressure reading, Cluster headache syndrome, Subarachnoid hemorrhage - Discharge Information *PRESCRIPTION DRUG MONITORING PROGRAM REVIEWED*: Not Applicable *COPY OF PRESCRIPTION DRUG MONITORING REPORT IN PATIENT BRENNAN: Not Applicable Instructions: Hypertension Referrals: Bianca Ding MD [Primary Care Provider] - Forms: ED Department Discharge Additional Instructions: Advised to follow-up tomorrow with her primary doctor, review her blood pressure and possibly starting blood pressure medication. Also discuss her current headache, possibly scan of her head or MRI and further testing. Also suspicion for pseudotumor cerebri. Advised to rest, hydration. Come back for any concern or any worsening symptom. Sepsis Event Note - Evaluation Sepsis Screening Result: No Definite Risk - Focused Exam Vital Signs: Vital Signs Temp Pulse Resp BP Pulse Ox 10/01/19 18:05 36.4 C 86 16 152/103 H 95 10/01/19 18:02 36.4 C 86 16 152/103 H 95 Date Exam was Performed: 10/01/19 Time Exam was Performed: 18:43 - Assessment/Plan Plan: Advised to follow-up tomorrow with her primary doctor, review her blood pressure and possibly starting blood pressure medication. Also discuss her current headache, possibly scan of her head or MRI and further testing. Also suspicion for pseudotumor cerebri. Advised to rest, hydration. Come back for any concern or any worsening symptom.
[2019-10-01] MEDS ORDERED: Ibuprofen 800 MG Tab PO ONE (18:40)
[2019-10-01 18:46] VITALS: BP 148/93
== END 2019-10-01 19:01 | disposition home or self-care (01) ==
LOC: JP.ED 17:50
DX: I60.9 Nontraumatic subarachnoid hemorrhage, unspecified (principal); G43.909 Migraine, unspecified, not intractable, without status migrainosus; G44.209 Tension-type headache, unspecified, not intractable; I10 Essential (primary) hypertension; Z79.899 Other long term (current) drug therapy
CPT/HCPCS: 99283; A9270

== ENCOUNTER 2020-04-01 18:46 | Emergency (ER) | payer MEDICARE, MEDICAID ==
[2020-04-01 19:11] VITALS: BP 150/91; PULSE 69
--- NOTE | 2020-04-01 19:34 | EDM.PDOC ---
ED HPI GENERAL MEDICAL PROBLEM - General Chief Complaint: ENT Problem Stated Complaint: LT SIDE MOUTH PAIN Time Seen by Provider: 04/01/20 19:00 Source of Information: Reports: Patient History Limitations: Reports: No Limitations - History of Present Illness INITIAL COMMENTS - FREE TEXT/NARRATIVE: Chief complaint: dental pain and infection This is a 30 year old female present to the ER for evaluation of worsen dental pain. She reports she had dental extraction of tooth on March 27. She reports today tooth extraction area is throbbing, swollen and painful. It was too late t o call [facility] for consult. She plans to do in the morning. 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: Acetaminophen, NSAIDS, Other Medication(s) (hydrocodone- ran out was given 5 pills.) - Related Data Allergies Allergy/AdvReac Type Severity Reaction Status Date / Time No Known Allergies Allergy Verified 04/01/20 19:08 Home Meds: Home Meds valACYclovir [Valtrex] 1 tab PO DAILY 05/24/19 [History] Past Medical History - Past Health History Medical/Surgical History: Denies Medical/Surgical History HEENT History: Reports: Other (See Below) Other HEENT History: excessive wax Cardiovascular History: Reports: Hypertension Other Cardiovascular History: HTN sometimes (intermittent, not treating at this time) Respiratory History: Reports: SOB Other Respiratory History: CURRENT HX OF WHOOPING COUGH Genitourinary History: Reports: Other (See Below) Other Genitourinary History: herpes Psychiatric History: Reports: Depression Endocrine/Metabolic History: Reports: Obesity/BMI 30+ - Infectious Disease History Infectious Disease History: Reports: Herpes - Past Surgical History Head Surgeries/Procedures: Reports: None HEENT Surgical History: Reports: None Cardiovascular Surgical History: Reports: None Respiratory Surgical History: Reports: None Female Surgical History: Reports: None Endocrine Surgical History: Reports: None Dermatological Surgical History: Reports: None Social & Family History - Family History Family Medical History: Unobtainable - Tobacco Use Smoking Status *Q: Never Smoker Second Hand Smoke Exposure: No - Caffeine Use Caffeine Use: Reports: None - Recreational Drug Use Recreational Drug Use: No - Living Situation & Occupation Living situation: Reports: Occupation: Employed (, lives with who is a [employer] Worker, she works at [employer]. Raising her two brothers ages 17 yr and 14 years because her Mom lost custody. No children of her own.) ED ROS ENT - Review of Systems Review Of Systems: See Below Constitutional: Reports: No Symptoms HEENT: Reports: Dental Pain Respiratory: Reports: No Symptoms Cardiovascular: Reports: No Symptoms Skin: Reports: No Symptoms Immunologic: Reports: No Symptoms ED EXAM, ENT - Physical Exam Exam: See Below Exam Limited By: No Limitations General Appearance: Alert, WD/WN, No Apparent Distress Eye Exam: Bilateral Eye: Normal Inspection Ears: Normal External Exam, Normal Canal, Hearing Grossly Normal, Normal TMs Nose: Normal Inspection, Normal Mucousa Mouth/Throat: Normal Lips, Normal Oropharynx, Dental Abcess, Dental Pain, Other (tooth #12 extraction, area is clean and dry. bulging tender gum proximal to extraction. other teeth in excellent repair.) Head: Atraumatic, Normocephalic Neck: Normal Inspection, Supple, Non-Tender Respiratory/Chest: No Respiratory Distress, Lungs Clear, Normal Breath Sounds Cardiovascular: Regular Rate, Rhythm, No Murmur Skin: Warm, Dry, Intact, Normal Color, No Rash Lymphatic: No Adenopathy Course - Vital Signs Last Recorded V/S: Last Vital Signs Temp 36.5 C 04/01/20 19:10 Pulse 69 04/01/20 19:10 Resp 16 04/01/20 19:10 BP 150/91 H 04/01/20 19:10 Pulse Ox 95 04/01/20 19:10 Departure - Departure Time of Disposition: 19:29 Disposition: Home, Self-Care 01 Condition: Good Clinical Impression: Dental infection - Discharge Information *PRESCRIPTION DRUG MONITORING PROGRAM REVIEWED*: Not Applicable *COPY OF PRESCRIPTION DRUG MONITORING REPORT IN PATIENT BRENNAN: Not Applicable Instructions: Dental Abscess, [id number] Referrals: Vera Delarosa CNM [Primary Care Provider] - Forms: ED Department Discharge Care Plan Goals: dental infection with dental pain -start Penicillin 500mg- take one pill 4 times a day til gone -Hydrocodone 5-325 mg take one every 4 to 6 hours as needed for pain #10 -Ibuprofen 600 mg one every 6 to 8 hours as needed for pain #30 -rinse mouth with warm salt water rinse. do not suck on straws, smoke or push water into the pulled tooth area -soft diet - no crunchy food example potato chips, hard candies -call Dental Clinic in the morning for recheck return to ER for any increased pain, fever, chills, nausea, vomiting, face swelling or any concerns or not improved Sepsis Event Note (ED) - Evaluation Sepsis Screening Result: No Definite Risk - Focused Exam Vital Signs: Vital Signs Temp Pulse Resp BP Pulse Ox 04/01/20 19:10 36.5 C 69 16 150/91 H 95 - Problem List & Annotations (1) Dental infection SNOMED Code(s): 056640987 Code(s): K04.7 - PERIAPICAL ABSCESS WITHOUT SINUS Status: Acute Priority: High - Problem List Review Problem List Initiated/Reviewed/Updated: Yes - Assessment/Plan Plan: dental infection with dental pain -start Penicillin 500mg- take one pill 4 times a day til gone -Hydrocodone 5-325 mg take one every 4 to 6 hours as needed for pain #10 -Ibuprofen 600 mg one every 6 to 8 hours as needed for pain #30 -rinse mouth with warm salt water rinse. do not suck on straws, smoke or push water into the pulled tooth area -soft diet - no crunchy food example potato chips, hard candies -call Dental Clinic in the morning for recheck return to ER for any increased pain, fever, chills, nausea, vomiting, face swelling or any concerns or not improved
== END 2020-04-01 19:50 | disposition home or self-care (01) ==
LOC: JP.ED 18:46
DX: K04.7 Periapical abscess without sinus (principal); E66.9 Obesity, unspecified; I10 Essential (primary) hypertension; Z68.42 Body mass index [BMI] 45.0-49.9, adult
CPT/HCPCS: 99282

== ENCOUNTER 2020-05-09 08:40 | Emergency (ER) | payer MEDICARE, MEDICAID ==
[2020-05-09 08:58] VITALS: BP 142/81; PULSE 76
[2020-05-09] MEDS ORDERED: Bacitracin Oint 1 GM U/D Packet TOP ONE (09:08)
[2020-05-09] MEDS ORDERED: Lidocaine 1% with EPINEPHrine 1:100,000 50 ML MDV SUBCUT STA (09:08)
[2020-05-09] MEDS ORDERED: LORazepam 1 MG Tab PO ONE (09:09)
[2020-05-09] MEDS ORDERED: Lidocaine/EPINEPHrine/Tetracaine Soln 5 ML Each TOP ONE (09:09)
--- NOTE | 2020-05-09 09:12 | EDM.PDOC ---
ED HPI GENERAL MEDICAL PROBLEM - General Chief Complaint: Laceration Stated Complaint: SLIPPED AND BROKE GLASS COFFEE TABLE Time Seen by Provider: 05/09/20 09:06 Source of Information: Reports: Patient, Family, RN Notes Reviewed History Limitations: Reports: No Limitations - History of Present Illness INITIAL COMMENTS - FREE TEXT/NARRATIVE: 30-year-old female presents emergency department today with a laceration to her right hand unfortunately she slipped at home fell into a glass coffee table and it broke she has no functional complaints - Related Data Allergies Allergy/AdvReac Type Severity Reaction Status Date / Time No Known Allergies Allergy Verified 05/09/20 08:58 Home Meds: Home Meds valACYclovir [Valtrex] 1 tab PO DAILY 05/24/19 [History] Sertraline HCl 100 mg PO DAILY 05/09/20 [History] busPIRone [Buspar] 10 mg PO BID 05/09/20 [History] lamoTRIgine [Lamotrigine] 1 tab PO DAILY 05/09/20 [History] Past Medical History HEENT History: Reports: Other (See Below) Other HEENT History: excessive wax Cardiovascular History: Reports: Hypertension Other Cardiovascular History: HTN sometimes (intermittent, not treating at this time) Respiratory History: Reports: SOB Other Respiratory History: CURRENT HX OF WHOOPING COUGH Genitourinary History: Reports: Other (See Below) Other Genitourinary History: herpes Psychiatric History: Reports: Depression Endocrine/Metabolic History: Reports: Obesity/BMI 30+ - Infectious Disease History Infectious Disease History: Reports: Herpes - Past Surgical History Head Surgeries/Procedures: Reports: None HEENT Surgical History: Reports: None Cardiovascular Surgical History: Reports: None Respiratory Surgical History: Reports: None Female Surgical History: Reports: None Endocrine Surgical History: Reports: None Dermatological Surgical History: Reports: None Social & Family History - Family History Family Medical History: Unobtainable - Tobacco Use Smoking Status *Q: Never Smoker - Caffeine Use Caffeine Use: Reports: Soda - Recreational Drug Use Recreational Drug Use: No - Living Situation & Occupation Living situation: Reports: Occupation: Employed (, 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 Raising her two brothers ages 17 yr and 14 years because her Mom l ost custody. No children of her own.) ED ROS GENERAL - Review of Systems Review Of Systems: See Below Constitutional: Reports: No Symptoms Musculoskeletal: Reports: No Symptoms Skin: Reports: Wound Neurological: Reports: No Symptoms ED EXAM, SKIN/RASH Exam: See Below Text/Narrative:: Examination of the right hand she does have a 3 cm laceration on the medial aspect predominantly on the dorsal surface, full range of motion of all digits radial pulses +2 Exam Limited By: No Limitations General Appearance: Alert, Mild Distress Respiratory/Chest: No Respiratory Distress Psychiatric: Anxious Front/Back Body Diagram: 1 - 3 cm laceration completely through the dermis ED SKIN PROCEDURES - Laceration/Wound Repair Right Hand Appearance: Subcutaneous, Linear Distal NVT: Neuro & Vascular Intact, No Tendon Injury Anesthetic Type: Local Local Anesthesia - Lidocaine (Xylocaine): 1% with EPI Local Anesthetic Volume: 2cc Skin Prep: Saline Saline Irrigation (cc's): 60 Exploration/Debridement/Repair: Wound Explored, In a Bloodless Field, Explored to Base Closed with: Sutures Lac/Wound length In cm: 3 Suture Size: 3-0 # of Sutures: 4 Suture Type: Prolene, Interrupted Sterile Dressing Applied: Nurse Tetanus Status Addressed: Yes Complications: No Course - Vital Signs Last Recorded V/S: Last Vital Signs Temp 99.7 F 05/09/20 09:04 Pulse 76 05/09/20 09:04 Resp 17 05/09/20 09:04 BP 142/81 H 05/09/20 09:04 Pulse Ox 95 05/09/20 09:04 - Orders/Labs/Meds Orders: Active Orders 24 hr Category Date Time Status Hand Comp Min 3V Rt [CR] Stat Exams 05/09/20 09:09 Taken Meds: Medications Discontinued Medications Generic Name Dose Route Start Last Admin Trade Name Dick PRN Reason Stop Dose Admin Bacitracin 1 dose 05/09/20 09:08 05/09/20 09:21 Bacitracin Oint 1 Gm TOP 05/09/20 09:09 1 dose ONETIME ONE Administration Lidocaine/Epinephrine 20 ml 05/09/20 09:08 05/09/20 09:21 Xylocaine 1% With Epinephrine 1:100,000 SUBCUT 05/09/20 09:09 50 ml NOW STA Administration Lidocaine/Tetracaine 5 ml 05/09/20 09:09 05/09/20 09:20 Let Soln TOP 05/09/20 09:10 5 ml ONETIME ONE Administration Lorazepam 1 mg 05/09/20 09:09 05/09/20 09:19 Ativan PO 05/09/20 09:10 1 mg ONETIME ONE Administration Departure - Departure Time of Disposition: 10:04 Disposition: Home, Self-Care 01 Condition: Good Clinical Impression: Laceration of hand, right Qualifiers: Encounter type: initial encounter Foreign body presence: without foreign body Qualified Code(s): S61.411A - Laceration without foreign body of right hand, initial encounter - Discharge Information Instructions: Laceration Care, Adult, [id number] Referrals: Vera Delarosa CNM [Primary Care Provider] - Forms: ED Department Discharge, ED Return to Work/School Form Sepsis Event Note (ED) - Evaluation Sepsis Screening Result: No Definite Risk - Focused Exam Vital Signs: Vital Signs Temp Pulse Resp BP Pulse Ox 05/09/20 09:04 99.7 F 76 17 142/81 H 95 05/09/20 08:57 99.7 F 76 17 142/81 H 95 - My Orders Last 24 Hours: My Active Orders 05/09/20 09:09 Hand Comp Min 3V Rt [CR] Stat - Assessment/Plan Last 24 Hours: My Active Orders 05/09/20 09:09 Hand Comp Min 3V Rt [CR] Stat Plan: Assessment Acuity = acute Site and laterality = 3 cm laceration right hand Etiology = secondary trauma with a coffee table glass Manifestations = none Location of injury = Home Lab values = none Plan Suture removal in 10 days, follow wound care instruction sheet This note was dictated using Vostu voice recognition software please call with any questions on syntax or grammar.
--- NOTE | 2020-05-11 09:39 | CR ---
Hand Comp Min 3V Rt CLINICAL HISTORY: Laceration FINDINGS: There is no acute fracture or dislocation of the hand. No radiopaque foreign body is identified. Bandage obscures some soft tissue detail. Impression: No fracture or foreign body
== END 2020-05-09 10:29 | disposition home or self-care (01) ==
LOC: JP.ED 08:40
DX: S61.411A Laceration without foreign body of right hand, initial encounter (principal); I10 Essential (primary) hypertension; E66.9 Obesity, unspecified; F32.9 Major depressive disorder, single episode, unspecified; Z79.899 Other long term (current) drug therapy; W25.XXXA Contact with sharp glass, initial encounter
CPT/HCPCS: 12002; 73130; 99283; A9270

== ENCOUNTER 2020-06-18 21:15 | Emergency (ER) | payer MEDICARE, MEDICAID ==
[2020-06-18 21:53] VITALS: BP 148/92; PULSE 85
--- NOTE | 2020-06-18 22:30 | EDM.PDOC ---
<Juan AlbertoJes M - Last Filed: 06/18/20 22:30> ED HPI GENERAL MEDICAL PROBLEM - General Chief Complaint: Respiratory Problem Stated Complaint: COUGH,FEVER,CHEST PAIN Time Seen by Provider: 06/18/20 21:20 Source of Information: Reports: Patient, RN, RN Notes Reviewed, Significant Other History Limitations: Reports: No Limitations - History of Present Illness Onset Date: 05/28/20 Duration: Chronic, Constant Location: Reports: Other (Chronic tickle in throat ) - Related Data Allergies Allergy/AdvReac Type Severity Reaction Status Date / Time No Known Allergies Allergy Verified 05/09/20 08:58 Home Meds: Home Meds valACYclovir [Valtrex] 1 tab PO DAILY 05/24/19 [History] Sertraline HCl 100 mg PO DAILY 05/09/20 [History] busPIRone [Buspar] 10 mg PO BID 05/09/20 [History] lamoTRIgine [Lamotrigine] 1 tab PO DAILY 05/09/20 [History] Past Medical History - Past Health History Medical/Surgical History: Denies Medical/Surgical History HEENT History: Reports: Other (See Below) Other HEENT History: excessive wax Cardiovascular History: Reports: Hypertension Other Cardiovascular History: HTN sometimes (intermittent, not treating at this time) Respiratory History: Reports: SOB Other Respiratory History: CURRENT HX OF WHOOPING COUGH Genitourinary History: Reports: Other (See Below) Other Genitourinary History: herpes Psychiatric History: Reports: Anxiety, Depression Endocrine/Metabolic History: Reports: Obesity/BMI 30+ - Infectious Disease History Infectious Disease History: Reports: Herpes - Past Surgical History Head Surgeries/Procedures: Reports: None HEENT Surgical History: Reports: None Cardiovascular Surgical History: Reports: None Respiratory Surgical History: Reports: None Female Surgical History: Reports: None Endocrine Surgical History: Reports: None Dermatological Surgical History: Reports: None Social & Family History - Family History Family Medical History: Unobtainable - Tobacco Use Smoking Status *Q: Never Smoker Second Hand Smoke Exposure: No - Caffeine Use Caffeine Use: Reports: Soda - Recreational Drug Use Recreational Drug Use: No - Living Situation & Occupation Living situation: Reports: Occupation: Employed (, 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 Raising her two brothers ages 17 yr and 14 years because her Mom lost custody. No children of her own.) ED ROS GENERAL - Review of Systems Review Of Systems: See Below Constitutional: Reports: No Symptoms HEENT: Reports: No Symptoms Respiratory: Reports: Cough (Dry tickle) Cardiovascular: Reports: No Symptoms Endocrine: Reports: No Symptoms GI/Abdominal: Reports: No Symptoms : Reports: No Symptoms Musculoskeletal: Reports: No Symptoms Skin: Reports: No Symptoms Neurological: Reports: No Symptoms Psychiatric: Reports: No Symptoms Hematologic/Lymphatic: Reports: No Symptoms Immunologic: Reports: No Symptoms ED EXAM, GENERAL - Physical Exam Exam: See Below Free Text/Narrative:: Pt here with SO for chronic "cough" or tickle that has not responded to Mucinex, Dayquil, Nyquil or any other medications tried. Pt denies CP, SOB, fever, and recieved COVID results today that are negative. Pt declines CXR$ and blood work. Needs Dr note and something for cough. Exam Limited By: No Limitations General Appearance: Alert, WD/WN, No Apparent Distress Throat/Mouth: Normal Inspection, Normal Lips, Normal Teeth, Normal Gums, Normal Oropharynx, Normal Voice, No Airway Compromise, Other (Chronic tickle/cough) Respiratory/Chest: No Respiratory Distress, Lungs Clear, Normal Breath Sounds, No Accessory Muscle Use Cardiovascular: Regular Rate, Rhythm, No Murmur, No Rub (Female) Exam: Deferred Rectal (Female) Exam: Deferred Neurological: Alert, Oriented Psychiatric: Normal Affect, Normal Mood Departure - Departure Disposition: Home, Self-Care 01 Condition: Good Clinical Impression: Cough - Discharge Information *PRESCRIPTION DRUG MONITORING PROGRAM REVIEWED*: Not Applicable *COPY OF PRESCRIPTION DRUG MONITORING REPORT IN PATIENT BRENNAN: Not Applicable Instructions: Cool Mist Vaporizer, Cough, Adult, [id number] Referrals: Vera Delarosa CNM [Primary Care Provider] - Forms: ED Department Discharge, ED Return to Work/School Form Care Plan Goals: Please be sure to get plenty of rest and plan for a healthy diet that includes plenty of fruits and vegetables. Please increase your liquid consumption to at least 8 glasses of water a day. Take your medication as prescribed. Should your symptoms worsen or continue, please see your primary doctor. Sepsis Event Note (ED) - Evaluation Sepsis Screening Result: No Definite Risk - Problem List & Annotations (1) Cough SNOMED Code(s): 58426322 Code(s): R05 - COUGH Status: Acute - Problem List Review Problem List Initiated/Reviewed/Updated: Yes - Assessment/Plan Plan: Please be sure to get plenty of rest and plan for a healthy diet that includes plenty of fruits and vegetables. Please increase your liquid consumption to at least 8 glasses of water a day. Take your medication as prescribed. Should your symptoms worsen or continue, please see your primary doctor <Yarelis Paul F - Last Filed: 06/18/20 23:08> Course - Vital Signs Last Recorded V/S: Last Vital Signs Temp 36.9 C 06/18/20 21:51 Pulse 85 06/18/20 21:51 Resp 16 06/18/20 21:51 BP 148/92 H 06/18/20 21:51 Pulse Ox 98 06/18/20 21:51 Departure - Departure Time of Disposition: 22:46 Sepsis Event Note (ED) - Focused Exam Vital Signs: Vital Signs Temp Pulse Resp BP Pulse Ox 06/18/20 21:51 36.9 C 85 16 148/92 H 98
== END 2020-06-18 22:46 | disposition home or self-care (01) ==
LOC: JP.ED 21:15
DX: R05 Cough (principal); R50.9 Fever, unspecified; R07.9 Chest pain, unspecified; I10 Essential (primary) hypertension; F41.9 Anxiety disorder, unspecified; F32.9 Major depressive disorder, single episode, unspecified; E66.9 Obesity, unspecified; Z68.42 Body mass index [BMI] 45.0-49.9, adult; Z79.899 Other long term (current) drug therapy
CPT/HCPCS: 99282; 99283

== ENCOUNTER 2021-09-13 17:27 | Emergency (ER) | payer MEDICARE, MEDICAID ==
--- NOTE | 2021-09-13 18:06 | EDM.PDOC ---
ED HPI GENERAL MEDICAL PROBLEM - General Chief Complaint: ENT Problem Stated Complaint: TOOTH PAIN Time Seen by Provider: 09/13/21 17:50 Source of Information: Reports: Patient History Limitations: Reports: No Limitations - History of Present Illness INITIAL COMMENTS - FREE TEXT/NARRATIVE: 31-year-old female has an ongoing intermittent dental pain in the left maxillary wisdom tooth, she had an appointment at the dentist office today but it was canceled due to the weather and rescheduled for several weeks from now. She put some Anbesol on it and she thought she saw some drainage on the Q-tip and was concerned she may have an infection. She has no swelling or fever. Onset: Gradual Duration: Week(s):, Waxing/Waning Location: Reports: Other (Left posterior maxillary wisdom tooth) Associated Symptoms: Reports: No Other Symptoms - Related Data Allergies Allergy/AdvReac Type Severity Reaction Status Date / Time No Known Allergies Allergy Verified 09/13/21 17:46 Home Meds: Home Meds valACYclovir [Valtrex] 1 tab PO DAILY 05/24/19 [History] Past Medical History - Past Health History Medical/Surgical History: Denies Medical/Surgical History HEENT History: Reports: Other (See Below) Other HEENT History: excessive wax Cardiovascular History: Reports: Hypertension Other Cardiovascular History: HTN sometimes (intermittent, not treating at this time) Respiratory History: Reports: SOB Other Respiratory History: CURRENT HX OF WHOOPING COUGH Genitourinary History: Reports: Other (See Below) Other Genitourinary History: herpes Psychiatric History: Reports: Anxiety, Depression Endocrine/Metabolic History: Reports: Obesity/BMI 30+ - Infectious Disease History Infectious Disease History: Reports: Herpes - Past Surgical History Head Surgeries/Procedures: Reports: None HEENT Surgical History: Reports: None Cardiovascular Surgical History: Reports: None Respiratory Surgical History: Reports: None Female Surgical History: Reports: None Endocrine Surgical History: Reports: None Dermatological Surgical History: Reports: None Social & Family History - Family History Family Medical History: Unobtainable - Tobacco Use Tobacco Use Status *Q: Never Tobacco User - Caffeine Use Caffeine Use: Reports: Coffee, Energy Drinks, Soda, Tea - Recreational Drug Use Recreational Drug Use: No - Living Situation & Occupation Living situation: Reports: Occupation: Employed (, 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 Raising her two brothers ages 17 yr and 14 years because her Mom lost custody. No children of her own.) ED ROS ENT - Review of Systems Review Of Systems: See Below Constitutional: Denies: Fever, Chills HEENT: Reports: Dental Pain Respiratory: Reports: No Symptoms Cardiovascular: Reports: No Symptoms GI/Abdominal: Reports: No Symptoms. Denies: Nausea, Vomiting Skin: Reports: No Symptoms Neurological: Denies: Headache ED EXAM, ENT - Physical Exam Exam: See Below Exam Limited By: No Limitations General Appearance: Alert, No Apparent Distress Mouth/Throat: Other (The posterior aspect of the left maxillary wisdom tooth is missing, there is no significant gingival inflammation or obvious drainage, no swelling) Respiratory/Chest: No Respiratory Distress Course - Vital Signs Last Recorded V/S: Last Vital Signs Temp 97.8 F 09/13/21 17:51 Pulse 85 09/13/21 17:51 Resp 16 09/13/21 17:51 BP 165/90 H 09/13/21 17:51 Pulse Ox 97 09/13/21 17:51 - Re-Assessments/Exams Free Text/Narrative Re-Assessment/Exam: 09/13/21 18:24 Patient was placed on penicillin VK 500 mg 4 times a day for the next 10 days and I encouraged her to try to get into the dentist as soon as possible. She can return if worsening. Departure - Departure Time of Disposition: 18:17 Disposition: Home, Self-Care 01 Clinical Impression: Dental abscess - Discharge Information Instructions: Dental Abscess, [id number] Referrals: PCP,None [Primary Care Provider] - Forms: ED Department Discharge Care Plan Goals: Take antibiotic as prescribed and recheck if worsening, see if you can reschedule dentist appt sooner. Sepsis Event Note (ED) - Evaluation Sepsis Screening Result: No Definite Risk - Focused Exam Vital Signs: Vital Signs Temp Pulse Resp BP Pulse Ox 09/13/21 17:51 97.8 F 85 16 165/90 H 97 09/13/21 17:42 97.8 F 85 16 165/90 H 97
[2021-09-13 20:30] VITALS: BP 165/90; PULSE 85
== END 2021-09-13 18:17 | disposition home or self-care (01) ==
LOC: JP.ED 17:27
DX: K04.7 Periapical abscess without sinus (principal); I10 Essential (primary) hypertension; E66.9 Obesity, unspecified; Z68.42 Body mass index [BMI] 45.0-49.9, adult
CPT/HCPCS: 99282

== ENCOUNTER 2021-11-04 16:25 | Emergency (ER) | payer MEDICARE, MEDICAID ==
[2021-11-04 16:46] VITALS: BP 154/82; PULSE 68
== END 2021-11-04 17:06 | disposition home or self-care (01) ==
LOC: JP.ED 16:25
DX: B30.9 Viral conjunctivitis, unspecified (principal); I10 Essential (primary) hypertension
CPT/HCPCS: 99282; 99283

== ENCOUNTER 2022-03-13 14:52 | Emergency (ER) | payer MEDICARE, MEDICAID ==
[2022-03-13 15:27] VITALS: BP 139/80; PULSE 74
== END 2022-03-13 16:02 | disposition home or self-care (01) ==
LOC: JP.ED 14:52
DX: J03.00 Acute streptococcal tonsillitis, unspecified (principal); I10 Essential (primary) hypertension; E66.9 Obesity, unspecified; Z68.43 Body mass index [BMI] 50.0-59.9, adult
CPT/HCPCS: 87880-QW; 99281; 99283

== ENCOUNTER 2022-04-11 20:32 | Emergency (ER) | payer MEDICARE, MEDICAID ==
[2022-04-11 21:44] VITALS: BP 143/87; PULSE 75
== END 2022-04-11 21:24 | disposition home or self-care (01) ==
LOC: JP.ED 20:32
DX: A05.9 Bacterial foodborne intoxication, unspecified (principal); I10 Essential (primary) hypertension; E66.9 Obesity, unspecified; Z68.43 Body mass index [BMI] 50.0-59.9, adult; Z79.899 Other long term (current) drug therapy
CPT/HCPCS: 99281; 99283

== ENCOUNTER 2022-10-31 19:35 | Emergency (ER) | payer MEDICARE, MEDICAID ==
[2022-10-31 19:55] VITALS: BP 149/79; PULSE 71
== END 2022-10-31 21:09 | disposition home or self-care (01) ==
LOC: JP.ED 19:35
DX: N91.5 Oligomenorrhea, unspecified (principal); I10 Essential (primary) hypertension; E66.9 Obesity, unspecified; Z68.43 Body mass index [BMI] 50.0-59.9, adult
CPT/HCPCS: 36415; 85025; 99284

== ENCOUNTER 2022-12-31 10:46 | Emergency (ER) | payer MEDICARE, MEDICAID ==
[2022-12-31 11:48] LABS: ESTIMATED GFR 119 mL/min (>60)
[2022-12-31 12:08] LABS: CORONAVIRUS COVID-19 NAA NEGATIVE (NEGATIVE)
[2022-12-31 14:03] VITALS: BP 119/78; PULSE 87
== END 2022-12-31 15:04 | disposition home or self-care (01) ==
LOC: JP.ED 10:46
DX: R05.9 Cough, unspecified (principal); T41.45XA Adverse effect of unspecified anesthetic, initial encounter; I10 Essential (primary) hypertension; E66.9 Obesity, unspecified; Z20.822 Contact with and (suspected) exposure to COVID-19; Z68.43 Body mass index [BMI] 50.0-59.9, adult
CPT/HCPCS: 0241U; 36415; 71046; 71046-26; 80053; 81001; 85025; 85379; 86140; 99284; 99285

== ENCOUNTER 2023-07-03 23:02 | Emergency (ER) | payer MEDICARE, MEDICAID ==
[2023-07-03 23:13] VITALS: BP 138/96; PULSE 86
[2023-07-03 23:22] LABS: APPEARANCE,URINE CLOUDY (CLEAR); BILIRUBIN,URINE NEGATIVE (NEGATIVE); COLOR,URINE YELLOW (YELLOW); GLUCOSE,URINE NEGATIVE (NEGATIVE); KETONES,URINE NEGATIVE (NEGATIVE); LEUKOCYTE ESTERASE,URINE SMALL (NEGATIVE); NITRITE,URINE POSITIVE (NEGATIVE); OCCULT BLOOD,URINE LARGE (NEGATIVE); PH,URINE 5.5 (5.0-8.0); PROTEIN,URINE >=300 mg/dL (NEGATIVE); UROBILINOGEN,URINE 0.2 EU/dL (0.2-1.0)
[2023-07-03 23:41] LABS: RBC,URINE >100 (0-5)
[2023-07-03 23:42] LABS: BACTERIA,URINE MANY; EPITHELIAL CELLS,URINE FEW; WBC,URINE >100 (0-5)
[2023-07-03 23:43] LABS: AMORPHOUS SEDIMENT,URINE NOT SEEN; MUCUS,URINE NOT SEEN
== END 2023-07-04 00:29 | disposition home or self-care (01) ==
LOC: JP.ED 23:02
DX: N39.0 Urinary tract infection, site not specified (principal); I10 Essential (primary) hypertension; E66.9 Obesity, unspecified; Z68.42 Body mass index [BMI] 45.0-49.9, adult; Z79.899 Other long term (current) drug therapy
CPT/HCPCS: 81001; 99283; 99284